=== PATIENT | female | born 1985 | race Two or more races ===

== ENCOUNTER 2018-07-27 16:18 | Emergency (ER) | payer MEDICAID ==
[~2018-07-27] VITALS: Ht 149.9 cm; Wt 63.5 kg
[2018-07-27] MEDS ORDERED: MORPHINE SULFATE 4 MG/ML CPJ (NOT FOR IM USE) IV ONE (17:00)
[2018-07-27] MEDS ORDERED: BUPIVACAINE HCL/PF 0.5% (5MG/ML) 10ML INFIL ONE (20:15)
[2018-07-27] MEDS ORDERED: OXYCODONE HCL/ACETAMINOPHEN 5/325MG TABLET PO ONE (20:15)
[2018-07-27 21:24] VITALS: BP 115/59
== END 2018-07-27 21:33 | disposition home or self-care (01) ==
LOC: ER 16:18
DX: S52.692A Other fracture of lower end of left ulna, initial encounter for closed fracture (principal); S52.592A Other fractures of lower end of left radius, initial encounter for closed fracture; W18.39XA Other fall on same level, initial encounter; Y93.89 Activity, other specified; Y92.89 Other specified places as the place of occurrence of the external cause; Y99.8 Other external cause status
CPT/HCPCS: 29125; 73090; 73110; 81025; 99284; J2270; J3490